=== PATIENT | male | born 1985 | race Caucasian/White ===

== ENCOUNTER 2020-02-19 14:02 | Emergency (ER) | payer MEDICAID ==
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
== END 2020-02-19 15:59 | disposition home or self-care (01) ==
LOC: CC.ED 14:02
DX: S06.9X0A Unspecified intracranial injury without loss of consciousness, initial encounter (principal); R55 Syncope and collapse; F17.210 Nicotine dependence, cigarettes, uncomplicated; Z88.0 Allergy status to penicillin; Z79.899 Other long term (current) drug therapy; V13.4XXA Pedal cycle driver injured in collision with car, pick-up truck or van in traffic accident, initial encounter
CPT/HCPCS: 70450; 99284-25